=== PATIENT | male | born 1990 | race Caucasian/White ===

== ENCOUNTER 2018-06-21 19:41 | Emergency (ER) | payer MEDICAID ==
[~2018-06-21] VITALS: Ht 175.3 cm; Wt 91.7 kg
[~2018-06-21 19:41] MED LIST: CEFD300C37 PO
[2018-06-21 19:48] VITALS: BP 149/81
== END 2018-06-21 20:48 | disposition home or self-care (01) ==
LOC: ED 20:42
DX: K04.7 Periapical abscess without sinus (principal); K08.89 Other specified disorders of teeth and supporting structures
CPT/HCPCS: 99283